=== PATIENT | female | born 1975 | race Caucasian/White ===

== ENCOUNTER 2016-04-27 21:08 | Emergency (ER) | payer MEDICAID ==
[~2016-04-27] VITALS: Wt 85.0 kg
[~2016-04-27 21:08] MED LIST: ACET500C5 PO; HYDR-762 PO; ONDA4TAB35 PO
--- NOTE | 2016-04-27 23:37 | RADRPT ---
PROCEDURE: Ultrasound right upper quadrant. CLINICAL INDICATION: Abdominal pain in the right upper quadrant. TECHNIQUE: Ultrasound examination of the abdomen with focus on the right upper quadrant. COMPARISON: Ultrasound right upper quadrant dated 01/29/2016. FINDINGS: 8 mm stone at the gallbladder neck. The gallbladder is distended measuring up to 112 mm in length. No pericholecystic fluid, although the gallbladder wall measures between 45 mm and is thickened. Common bile duct measures 5 mm. Liver measures 161 mm. The liver likely demonstrates fatty infiltr ation, with increased echogenicity. The right kidney measures 105 mm, and there is no evident renal mass, hydronephrosis retained calcul us. Pancreas is not visualized secondary to overlying bowel gas. IMPRESSION: 1. Gallstone and gallbladder wall thickening, and findings may represent acute cholecystitis in the appropriate clinical setting. 2. Fatty infiltration of the liver. RPTAT: [facility] Physician Davy Date Time Electronically viewed and signed by Physician Davy on 04/27/2016 23:37 RS/
[2016-04-27] MEDS ORDERED: morphine 4 MG/ML VIAL IV STA (23:50)
[2016-04-27] MEDS ORDERED: SOD CHLORIDE 0.9% 1,000 ML IV STA (23:50)
[2016-04-27] MEDS ORDERED: ONDANSETRON 4 MG INJ IV STA (23:50)
[2016-04-28 00:37] LABS: ADD UMIC YES; URINE BILIRUBIN (Dip) NEGATIVE (NEGATIVE); URINE BLOOD (Dip) TRACE (NEGATIVE); URINE COLOR LT. YELLOW (YELLOW); URINE GLUCOSE (Dip) NEGATIVE (NEGATIVE); URINE KETONES (Dip) NEGATIVE (NEGATIVE); URINE LEUKOCYTE ESTERASE (Dip) NEGATIVE (NEGATIVE); URINE NITRITE (Dip) NEGATIVE (NEGATIVE); URINE TOTAL PROTEIN (Dip) NEGATIVE (NEGATIVE); URINE UROBILINOGEN (Dip) 0.2 E.U./dL (0.1-1.0)
[2016-04-28 00:38] LABS: ALBUMIN 4.2 g/dl (3.3-4.9)
[2016-04-28 00:41] LABS: ALBUMIN/GLOBULIN RATIO 1.35; BILIRUBIN,INDIRECT 0.1 mg/dl (0-1.1); BILIRUBIN,TOTAL 0.1 mg/dl (0.2-1.3); CREATININE 0.61 mg/dl (0.44-1.00); TOTAL PROTEIN 7.3 g/dl (6.1-8.1)
[2016-04-28 00:42] LABS: CALCIUM 9.5 mg/dl (8.4-10.2)
[2016-04-28 00:50] LABS: BACTERIA,URINE OCCASIONAL; SQUAMOUS EPITHELIAL CELL,UR OCCASIONAL
[2016-04-28 01:01] LABS: BASOPHILS % 0.4 % (0.0-2.0); EOSINOPHILS # 0.1 10^3/ul (0.0-0.5); EOSINOPHILS % 1.3 % (0.0-7.0); HEMATOCRIT 35.9 % (37.0-47.0); HEMOGLOBIN 12.1 g/dl (12.0-16.0); LYMPHOCYTES # 1.9 10^3/ul (0.8-2.9); LYMPHOCYTES % 22.5 % (15.0-51.0); MEAN CORPUSCULAR HEMOGLOBIN 29.9 pg (29.0-33.0); MEAN CORPUSCULAR HGB CONC 33.7 g/dl (32.0-37.0); MEAN CORPUSCULAR VOLUME 88.9 fl (82.0-101.0); MEAN PLATELET VOLUME 10.5 fl (7.4-10.4); MONOCYTE # 0.4 10^3/ul (0.3-0.9); MONOCYTES % 4.5 % (0.0-11.0); NEUTROPHIL # 6.2 10^3/ul (1.6-7.5); NEUTROPHILS % 71.3 % (39.0-77.0); PLATELET COUNT 235 10^3/UL (140-440); RED BLOOD COUNT 4.04 10^6/ul (4.20-5.40); RED CELL DISTRIBUTION WIDTH 13.1 % (11.5-14.5); UNCORRECTED WBC 8.6 10^3/ul (4.8-10.8); WHITE BLOOD COUNT 8.6 10^3/ul (4.8-10.8)
[2016-04-28 01:05] LABS: CONDITION 1
[2016-04-28] MEDS ORDERED: ONDA4TAB14 PO (02:32)
[2016-04-28] MEDS ORDERED: NAPR-688 PO (02:32)
[2016-04-28] MEDS ORDERED: HYDR-905 PO (02:32)
[2016-04-28 02:53] VITALS: BP 130/78; PULSE 78; RESP 18; TEMP 99.2
--- NOTE | 2016-04-28 03:02 | ERD ---
ER Documentation Chief Complaint Date/Time DATE: 04/28/16 TIME: 02:57 Chief Complaint R UPPER QUAD PAIN FOR 2 DAYS. HX OF GALLSTONES. N/V. NO DIARRHEA HPI This 40-year-old female presented to the ER with 2 days right upper quadrant pain on and off. Described as a sharp pain. She has a history of gallstones. She denies any nausea vomiting or diarrhea. Does not have pain medication at home. No fevers or chills. Her only symptom is intermittent pain. ROS All systems reviewed and are negative except as per history of present illness. Medications Home Meds Active Scripts Ondansetron (Ondansetron Odt) 4 Mg Tab.rapdis, 4 MG PO Q6H Y for NAUSEA AND/OR VOMITING, #10 TAB Prov:CHANI IGNACIO DO 04/28/16 Naproxen* (Naproxen*) 500 Mg Tablet, 500 MG PO BID Y for PAIN, #20 TAB Prov:CHANI IGNACIO DO 04/28/16 Hydrocodone/Acetaminophen (Camden 7.5-325 Tablet) 1 Each Tablet, 1 EACH PO Q6, # 20 TAB Prov:CHANI IGNACIO DO 04/28/16 Acetaminophen* (Tylophen*) 500 Mg Capsule, 2 CAP PO Q8H Y for PAIN AND OR ELEVATED TEMP, #20 CAP Prov:JORGE NOVAK 01/29/16 Ondansetron Hcl* (Zofran* ODT) 4 mg -ODT Tab.disper, 4 MG PO Q6 Y for NAUSEA AND /OR VOMITING, #30 TAB Prov:ZAIN ROCHA MD 08/12/15 Hydrocodone Bit-Acetaminophen* (Camden*) 10-325 Mg Tablet, 1 TAB PO Q6 Y for PAIN , #7 TAB Prov:ZAIN ROCHA MD 08/12/15 Allergies Allergies: Coded Allergies: No Known Drug Allergies (Verified Allergy, Unknown, 08/12/15) PMhx/Soc History of Surgery: Yes (Removal of ovarian cyst) Anesthesia Reaction: No Hx Neurological Disorder: No Hx Respiratory Disorders: No Hx Cardiac Disorders: No Hx Psychiatric Problems: No Hx Miscellaneous Medical Probl: Yes (gallstones (01/2016)) Hx Alcohol Use: No Hx Substance Use: No Hx Tobacco Use: No Smoking Status: Never smoker Physical Exam Vitals Vital Signs Date Time Temp Pulse Resp B/P Pulse Ox O2 Delivery O2 Flow Rate FiO2 04/28/16 02:53 99.2 78 18 130/78 100 Room Air 04/27/16 21:11 99.1 86 21 140/62 100 Physical Exam Const: [] No distress Head: Atraumatic Eyes: Normal Conjunctiva ENT: Normal External Ears, Nose and Mouth. Neck: Full range of motion..~ No meningismus. Resp: Clear to auscultation bilaterally Cardio: Regular rate and rhythm, no murmurs Abd: Soft, mild to moderate right epigastric and mild right upper quadrant tenderness, negative Garnett sign, non distended. Normal bowel sounds Skin: No petechiae or rashes Ext: No cyanosis, or edema Neur: Awake and alert oriented 3, no focal deficits Psych: Normal Mood and Affect Result Diagram: 04/27/16234104/27/162 Results 24 hrs Laboratory Tests Test 04/27/16 23:42 Alanine Aminotransferase (ALT/SGPT) 29IU/L Albumin 4.2g/dl Albumin/Globulin Ratio 1.35 Alkaline Phosphatase 72IU/L Anion Gap 17 Aspartate Amino Transf (AST/SGOT) 22IU/L Basophils # 0.010^3/ul Basophils % 0.4% Blood Morphology Comment Blood Urea Nitrogen 6mg/dl Calcium Level 9.5mg/dl Carbon Dioxide Level 24mmol/L Chloride Level 106mmol/L Creatinine 0.61mg/dl Direct Bilirubin 0.00mg/dl Eosinophils # 0.110^3/ul Eosinophils % 1.3% Globulin 3.10g/dl Glucose Level 142mg/dl Hematocrit 35.9% Hemoglobin 12.1g/dl Indirect Bilirubin 0.1mg/dl Lipase 119U/L Lymphocytes # 1.910^3/ul Lymphocytes % 22.5% Mean Corpuscular Hemoglobin 29.9pg Mean Corpuscular Hemoglobin Concent 33.7g/dl Mean Corpuscular Volume 88.9fl Mean Platelet Volume 10.5fl Monocytes # 0.410^3/ul Monocytes % 4.5% Neutrophils # 6.210^3/ul Neutrophils % 71.3% Nucleated Red Blood Cells # 0.010^3/ul Nucleated Red Blood Cells % 0.0/100WBC Platelet Count 41789^3/UL Potassium Level 4.0mmol/L Red Blood Count 4.0410^6/ul Red Cell Distribution Width 13.1% Sodium Level 143mmol/L Total Bilirubin 0.1mg/dl Total Protein 7.3g/dl Urine Bacteria OCCASIONAL Urine Bilirubin NEGATIVE Urine Clarity CLEAR Urine Color LT. YELLOW Urine Glucose NEGATIVE% Urine Hemoglobin TRACE Urine Ketones NEGATIVE Urine Leukocyte Esterase NEGATIVE Urine Microscopic RBC 5-10/HPF Urine Microscopic WBC 0-2/HPF Urine Nitrite NEGATIVE Urine Specific Howard <=1.005 Urine Squamous Epithelial Cells OCCASIONAL Urine Total Protein NEGATIVE Urine Urobilinogen 0.2 E.U./dL Urine pH 6.5 White Blood Count 8.610^3/ul Current Medications Medications (Trade) Dose Ordered Sig/Alice Route PRN Reason Start Time Stop Time Status Last Admin Dose Admin Sodium Chloride (NS) 1,000 ml @ 1,000 mls/hr Q1H STAT IV 04/27/16 23:50 04/28/16 00:49 DC 04/28/16 00:00 Morphine Sulfate (morphine) 4 mg ONCE STAT IV 04/27/16 23:50 04/27/16 23:51 DC 04/28/16 00:00 Ondansetron HCl (Zofran Inj) 4 mg ONCE STAT IV 04/27/16 23:50 04/27/16 23:51 DC 04/28/16 00:00 Procedures/MDM 40-year-old female with ultrasound evidence of mild cholecystitis. Does not have elevated white count or significant elevated liver function tests. No elevated bilirubin and lipase. Patient was given IV fluid as well as well as morphine which resolved her pain. Initially told her that she be admitted to the hospital. However proximally 20 minutes later she stated that she would prefer to go home as her pain is resolved. I discussed this with her and believe because she has normal laboratories and is willing to return to the hospital she expresses any severe pain and I will discharge her. I have explained to her to call the number on her [employer] card in order to find out who her primary care physician is and then obtain a referral for general surgeon. She understands these instructions and refer this to being admitted to the hospital. I'm discharging with [place], naproxen, Zofran ODT. Return precautions given as well. Gallbladder ultrasound interpretation: Hepatic steatosis, gallstones with mildly thickened wall and 5 mm common bile duct. Departure Diagnosis: Primary Impression: Biliary colic Additional Impression: Hepatic steatosis Condition: Stable Patient Instructions: Biliary Colic With Gallstone (Confirmed) Referrals: [facility] YOU HAVE RECEIVED A MEDICAL SCREENING EXAM AND THE RESULTS INDICATE THAT YOU DO NOT HAVE A CONDITION THAT REQUIRES URGENT TREATMENT IN THE EMERGENCY DEPARTMENT. FURTHER EVALUATION AND TREATMENT OF YOUR CONDITION CAN WAIT UNTIL YOU ARE SEEN IN YOUR DOCTORS OFFICE WITHIN THE NEXT 1-2 DAYS. IT IS YOUR RESPONSIBILITY TO MAKE AN APPOINTMENT FOR FOLOW-UP CARE. IF YOU HAVE A PRIMARY DOCTOR --you should call your primary doctor and schedule an appointment IF YOU DO NOT HAVE A PRIMARY DOCTOR YOU CAN CALL OUR PHYSICIAN REFERRAL HOTLINE AT IF YOU CAN NOT AFFORD TO SEE A PHYSICIAN YOU CAN CHOSE FROM THE FOLLOWING [facility] [address] [facility] [address] [facility] [address] [facility] [address] [facility] [address]. [facility]. [address] Additional Instructions: Llame al doctor MAANA y kenan christian DIXIE PARA DENTRO DE 2-3 MUÑOZ. Consigue un referral para un GENERAL SURGEON. Dgale a la secretaria que nosotros le instruimos hacer esta dixie.Avise o llame si malloy condicin se empeora antes de la dixie. Regresa aqui si peor o no mejor. CHANI IGNACIO DO Apr 28, 2016 03:02
== END 2016-04-28 03:20 | disposition home or self-care (01) ==
LOC: FTE 21:08
DX: K80.46 Calculus of bile duct with acute and chronic cholecystitis without obstruction (principal); K76.0 Fatty (change of) liver, not elsewhere classified
CPT/HCPCS: 76705; 80053; 81001; 81003; 83690; 85025; J2270; J2405; J7030; 36415; 96374; 96375

== ENCOUNTER 2016-10-15 10:30 | Day surgery (SDC) | payer MEDICAID, OTHER ==
[2016-10-15] VITALS (17 sets, daily range): BP systolic 105–140; BP diastolic 57–74; PULSE 66–83; RESP 11–28; Ht 157.5 cm; Wt 83.8 kg
[~2016-10-15] VITALS: Ht 157.5 cm; Wt 83.8 kg
[~2016-10-15 10:30] MED LIST changes: +DESFLURANE 15 MIN ONE; +HYDR-905 PO; +NAPR-688 PO; +ONDA4TAB14 PO
[2016-10-15] MEDS ORDERED: SUCCINYLCHOLINE CHLORIDE 100 MG/5 ML SYG IV ONE (12:58)
[2016-10-15] MEDS ORDERED: FENTAnyl 50 MCG/ML VIAL ONE ×2 (12:59→13:56)
[2016-10-15] MEDS ORDERED: LIDOCAINE 1% (MDV) 20 ML INJ ONE (12:59)
[2016-10-15] MEDS ORDERED: MIDAZOLAM 1 MG/ML 2 ML INJ ONE (12:59)
[2016-10-15] MEDS ORDERED: PROPOFOL 20 ML ONE (12:59)
[2016-10-15] MEDS ORDERED: ROPIVACAINE 0.5 % 30 ML VIAL ONE (13:02)
[2016-10-15] MEDS ORDERED: CEFAZOLIN 1 GM INJ ONE (13:23)
[2016-10-15] MEDS ORDERED: ROCURONIUM 50 MG INJ ONE (13:23)
[2016-10-15] MEDS ORDERED: ONDANSETRON 4 MG INJ ONE (13:25)
[2016-10-15] MEDS ORDERED: FAMOTIDINE 20 MG INJ ONE (13:25)
[2016-10-15] MEDS ORDERED: DEXAMETHASONE 4 MG/ML 1 ML INJ ONE (13:25)
[2016-10-15] MEDS ORDERED: BUPIVACAINE 0.25% (MPF) 10 ML 10 ML VIAL INJ ONE (13:38)
[2016-10-15] MEDS ORDERED: SUGAMMADEX SODIUM 200 MG/2 ML VIAL IV ONE (13:47)
--- NOTE | 2016-10-15 13:55 | OPR ---
Date/Time of Note Date/Time of Note DATE: 10/15/16 TIME: 13:51 Operative Report Procedure Date: Oct 15, 2016 Preoperative Diagnosis symptomatic gallstones and liver steatosis Postoperative Diagnosis same Operation Performed 1. laparoscopic cholecystectomy 2. liver wedge biopsy 3. therapeutic subcutaneous injection of marcaine Surgeon: Tien GLEZ Specimens gallbladder liver wedge biopsy Indications This is a 41-year-old female with symptomatic gallstones and steatosis. She required surgical excision of the gallbladder and liver wedge biopsy. Risks alternatives benefits and percent were discussed the patient. Patient expresses understanding consents to the operation. Procedure Description Patient is taken to the OR and prepped and draped in usual sterile fashion surgical timeout was performed IV antibiotics given. Infraumbilical incision is made transversely with a 15 blade. Dissection cautery was carried down to the fascia. The fascia was grasped with Newry's and divided with curved Ricketts scissors. 0 Vicryl U stitch is placed into the fascia. Balloon Zamora trocar is introduced. Pneumoperitoneum is established. Midepigastric 12 mm optical trocar was placed under direct visualization. Right upper quadrant right upper flank 5 mm optical traverse trochars were placed under direct visualization. Upon initial inspection there are some adhesions to the gallbladder which were taken down bluntly. The lateral aspect of the gallbladder was dissected with cautery. The gallbladder was retracted in the lateral and out motion. The critical view was established the cystic duct was identified. The cystic duct was divided with 3 clips proximal to distal. The cystic artery was divided with 3 clips proximal 1 clip distal. Gallbladder was taken of the gallbladder bed. The gallbladder was retrieved using an Endo Catch bag. Attention was then paid to the liver with steatosis and discoloration. A wedge liver biopsy using scissor cautery was performed in segment 5. There is good hemostasis. This specimen was removed through the midepigastric port. Ports were removed under direct visualization. 0 Vicryl U stitch was tied down. Skin was closed using skin mehrdad. Therapeutic subcutaneous Marcaine was injected throughout the incisions. Dry dressings were applied. Tien GLEZ Oct 15, 2016 13:55
[2016-10-15] MEDS ORDERED: SOD CHLORIDE 0.9% 1,000 ML IV ONE (14:00)
[2016-10-15] MEDS ORDERED: CEFAZOLIN 2 GM/50 ML (PMX) 50 ML IVPB ONE (14:00)
[2016-10-15] MEDS ORDERED: HYDROCODONE/APAP (5/325) TAB PO ONE (14:00)
[2016-10-15] MEDS ORDERED: HYDROmorphONE (0.2 MG/ML) 10ML SYG IV ONE (14:14)
[2016-10-15] MEDS: HYDROmorphONE (0.2 MG/ML) 10ML SYG IV PRN ×3 (14:20→15:04)
[2016-10-15] MEDS ORDERED: HYDROmorphONE (0.2 MG/ML) 10ML SYG IV PRN (14:30)
[2016-10-15] MEDS ORDERED: METOCLOPRAMIDE 10 MG INJ IV PRN (14:30)
[2016-10-15] MEDS ORDERED: PROCHLORPERAZINE 10 MG INJ IV PRN (14:30)
== END 2016-10-15 16:06 | disposition home or self-care (01) ==
LOC: SDS 10:30
PROVIDERS: ATTEND Surgery
DX: K80.10 Calculus of gallbladder with chronic cholecystitis without obstruction (principal)
CPT/HCPCS: 47562; 84703; 88304; 88307; 88313; J0690; J1100; J1170; J2250; J2405; J2795; J3010; Z7512; Z7610; J7999

== ENCOUNTER 2016-10-24 01:10 | Emergency (ER) | payer OTHER ==
[~2016-10-24] VITALS: Ht 167.6 cm; Wt 84.0 kg
[~2016-10-24 01:10] MED LIST changes: -DESFLURANE 15 MIN ONE
[2016-10-24 01:14] VITALS: Ht 167.6 cm; Wt 84.0 kg
[2016-10-24] MEDS ORDERED: IBUP-1542 PO (01:44)
--- NOTE | 2016-10-24 01:52 | ERD ---
ER Documentation Chief Complaint Date/Time DATE: 10/24/16 TIME: 01:48 Chief Complaint abd staple check s/p augustine 1 week ago. f/u appt for today HPI 41-year-old female presents here in emergency department for complaints of possible movement of her staple, patient was coughing, when she coughed, she felt a staple in her periumbilical area after cholecystectomy movement. Patient denies pain sharp pain 6/10 scale, is worse upon touching the area. Patient wants to have the wound check. Patient has an appointment with her surgeon at 11 AM today. Patient does not have any discharge coming from the area. Patient does not have any fever or chills. Patient does not have any redness or swelling. She does not have any gaping of the wound. ROS All systems reviewed and are negative except as per history of present illness. Medications Home Meds Active Scripts Ibuprofen* (Motrin*) 600 Mg Tab, 600 MG PO Q6H Y for PAIN AND OR ELEVATED TEMP, #30 TAB Prov:LUIS ANDREWS NP 10/24/16 Allergies Allergies: Coded Allergies: No Known Drug Allergies (Verified Allergy, Unknown, 10/24/16) PMhx/Soc History of Surgery: Yes (ovarian cyst remove, cholecystectomy) Anesthesia Reaction: No Hx Neurological Disorder: No Hx Respiratory Disorders: No Hx Cardiac Disorders: No Hx Psychiatric Problems: No Hx Miscellaneous Medical Probl: No Hx Alcohol Use: No Hx Substance Use: No Hx Tobacco Use: No FmHx Family History: No coronary disease, No diabetes, No other Physical Exam Vitals Vital Signs Date Time Temp Pulse Resp B/P Pulse Ox O2 Delivery O2 Flow Rate FiO2 10/24/16 01:14 99.4 75 18 136/75 99 Physical Exam GENERAL: The patient is well developed and appropriate for usual state of health, in no apparent distress. CHEST: Clear to auscultation bilaterally. There are no rales, wheezes or rhonchi. HEART: Regular rate and rhythm. No murmurs, clicks, rubs or gallops. No S3 or S4. ABDOMEN: Soft, nontender and nondistended. Good bowel sounds. No rebound or guarding. No gross peritonitis. No gross organomegaly or masses. No Garnett sign or McBurney point tenderness. BACK: No midline or flank tenderness. EXTREMITIES: Equal pulses bilaterally. There is no peripheral clubbing, cyanosis or edema. No focal swelling or erythema. Full range of motion. Grossly neurovascularly intact. NEURO: Alert and oriented. Cranial nerves 2-12 intact. Motor strength in all 4 extremities with 5/5 strength. Sensation grossly intact. Normal speech and gait. SKIN: Noted multiple staple placed all over the abdomen in incision sites, all incision sites are noted to be well approximated, no bleeding noted, no serious discharge or purulent discharge noted. No abdominal tenderness noted. There is some tenderness in 1 staple noted in the periumbilical area, no redness, no dehiscence and evisceration noted. There is no apparent rash or petechia. The skin is warm and dry. HEMATOLOGIC AND LYMPHATIC: There is no evidence of excessive bruising or lymphedema. No gross cervical, axillary, or inguinal lymphadenopathy. Results 24 hrs Current Medications Medications (Trade) Dose Ordered Sig/Alice Route PRN Reason Start Time Stop Time Status Last Admin Dose Admin Morphine Sulfate (morphine) 4 mg ONCE ONCE IM 10/24/16 02:00 10/24/16 02:01 Ibuprofen (Motrin) 600 mg ONCE ONCE PO 10/24/16 02:00 10/24/16 02:01 Patient was given medication for pain here in emergency department, after treatment, patient verbalized feeling much better. Patient's pain is improved. Procedures/MDM Medical decision making: Patient was here for a wound check, patient's wounds were healing well, most likely staple moved when she was coughing causing causing the pain. No dehiscence noted, no discoloration, no symptoms of any infection. Patient is not febrile. No tenderness in the abdomen noted. No symptoms of sepsis at this time. Patient appears well and is hemodynamically stable. Patient has an appointment at 11 AM with general surgeon, was advised to see her surgeon for further evaluation and management. Patient is advised to continue taking her [place] home, was prescribed ibuprofen for pain. Patient was also medicated for pain here in emergency department. Patient is advised to return to emergency department for opening of the wound, high fever, redness or swelling, any other worsening symptoms. Otherwise, patient is advised to see the general surgeon at her appointment 11 AM today. Departure Diagnosis: Primary Impression: Encounter for wound re-check Condition: Stable Patient Instructions: Wound Care, Post Op Wound Check, Pain Additional Instructions: see surgeon as per appt this morning at 11 am, continue norco for severe pain LUIS ANDREWS NP Oct 24, 2016 01:52
[2016-10-24] MEDS ORDERED: IBUPROFEN 600 MG TAB PO ONE (02:00)
[2016-10-24] MEDS ORDERED: morphine 10 MG INJ IM ONE (02:00)
== END 2016-10-24 02:08 | disposition home or self-care (01) ==
LOC: FTE 01:10
DX: R10.33 Periumbilical pain (principal); Z48.01 Encounter for change or removal of surgical wound dressing
CPT/HCPCS: 96372; J2270; Z7502; Z7610